=== PATIENT | male | born 1975 | race Caucasian/White ===

== ENCOUNTER → 2017-10-31 | Outpatient (CLI) | payer BC | LOC: LAB 15:14 | DX: R50.9 Fever, unspecified (principal); J06.9 Acute upper respiratory infection, unspecified ==

== ENCOUNTER 2024-03-01 08:15 | Emergency (ER) | payer BC ==
[2024-03-01] MEDS ORDERED: NS 1,000 ML IV ONE (10:16)
[2024-03-01] MEDS ORDERED: methylPREDNISolone Sod Succ 125 MG/2 ML VIAL IV ONE (10:16)
[2024-03-01] MEDS ORDERED: Home Cyclobenzaprine 10 MG #2 TABS/PACK PO ONE (10:16)
[2024-03-01] MEDS ORDERED: Ondansetron 4 MG/2 ML VIAL IV ONE (10:16)
[2024-03-01] MEDS ORDERED: Doxycycline Monohydrate 100 MG CAP PO ONE (10:16)
[2024-03-01] MEDS ORDERED: NS 60 ML IV ONE (11:05)
[2024-03-01] MEDS ORDERED: Iohexol 300 - 100 ML VIAL IV ONE (11:05)
[2024-04-20 16:44] LABS: URINE APPEARANCE CLEAR (CLEAR); URINE COLOR YELLOW (YELLOW)
[2024-04-20 16:45] LABS: URINE BILIRUBIN NEGATIVE (NEGATIVE); URINE BLOOD NEGATIVE (NEGATIVE); URINE GLUCOSE NEGATIVE (NEGATIVE); URINE KETONE NEGATIVE (NEGATIVE); URINE LEUKOCYTE ESTERASE NEGATIVE (NEGATIVE); URINE NITRATE NEGATIVE (NEGATIVE); URINE PROTEIN(semi-quant) NEGATIVE (NEGATIVE); URINE WBC 0-1 /hpf (0-3)
[2024-04-20 17:02] LABS: BASO # 0.02 K/mm3 (0.02-0.10); EOS # 0.02 K/mm3 (0.04-0.40); EOS % 0.2 % (0.0-4.0); HEMATOCRIT 45.5 % (42.0-52.0); HEMOGLOBIN 15.4 g/dL (13.5-18.0); LYMPH# 0.87 K/mm3 (1.50-4.00); MEAN CELL VOLUME 87 fl (78-100); MEAN CORPUSCULAR HEMOGLOBIN 29 pg (27-31); MEAN CORPUSCULAR HGB CONC 34 g/dL (33-37); MEAN PLATELET VOLUME 8.9 fl (7.4-10.4); MONO # 0.98 K/mm3 (0.20-0.80); NEU # 6.61 K/mm3 (1.40-6.50); PLATELET COUNT 172 K/mm3 (130-400); RED BLOOD COUNT 5.25 M/mm3 (4.20-5.60); RED CELL DISTRIBUTION WIDTH 12.6 % (11.5-14.5); WHITE BLOOD COUNT 8.5 K/mm3 (4.8-10.8)
[2024-04-20 17:04] LABS: ALBUMIN 4.4 g/dL (3.5-5.0); CALCIUM 9.7 mg/dL (8.3-10.5); TOTAL BILIRUBIN 0.4 mg/dL (0.2-1.2); TOTAL PROTEIN 7.5 g/dL (6.4-8.3); TROPONIN-I 0.032 ng/mL (0.00-0.033)
[2024-04-20 17:07] LABS: ANAPLASMA PHAGOCYTOPHILUM PCR AMS; EHRLICHIA CHAFFEENSIS AB PCR AMS; EHRLICHIA EWINGII/CANIS PCR AMS
== END 2024-03-01 12:35 | disposition home or self-care (01) ==
LOC: ED 08:15 → EDSTATUS 03-26 14:44
PROVIDERS: Family Medicine
DX: K50.90 Crohn's disease, unspecified, without complications (principal); K52.9 Noninfective gastroenteritis and colitis, unspecified; E86.0 Dehydration; M62.838 Other muscle spasm
CPT/HCPCS: J2405; J2919; J7030; Q9967